=== PATIENT | male | born 1955 | race Caucasian/White ===

== ENCOUNTER → 2017-02-26 | Outpatient (CLI) | payer OTHER ==
[~2017-02-26] MED LIST: ASPEC325 PO; CLB200 PO; MULT-506 PO; OXYSR10 PO; RXC5 PO; TADA10TA PO
[2017-02-26 18:20] LABS: URINE APPEARANCE TURBID (CLEAR); URINE BILIRUBIN NEG (NEG); URINE COLOR YELLOW; URINE EPITHELIAL CELL AUTO 0-5 /lpf (0-5); URINE NITRITE NEG (NEG); URINE SPECIFIC GRAVITY 1.028 (1.000-1.030); UROBILINOGEN NEG (NEG)
[2017-02-26 18:23] LABS: MANUAL MICROSCOPIC REQUIRED? NO; REVIEW REQ? NO
== END | disposition home or self-care (01) ==
LOC: C.LABMFLN 11:27
PROVIDERS: ATTEND Family Medicine
DX: N45.1 Epididymitis (principal)

== ENCOUNTER → 2017-11-20 | Outpatient (CLI) | payer OTHER | END | disposition home or self-care (01) | LOC: C.LABMFLN 08:08 | PROVIDERS: ATTEND Family Medicine | DX: R31.29 Other microscopic hematuria (principal) ==

== ENCOUNTER 2022-11-07 04:59 | Observation (INO) ==
--- NOTE | 2022-10-18 09:23 | PAT Medication Instructions ---
Medication Instructions Date of Service October 18, 2022 Home Medications Medication Instructions Recorded multivitamin (Multiple Vitamins 1 tab PO DAILY #90 tabs 07/22/19 tablet) sildenafil 100 mg tablet 100 mg PO DAILY PRN sexual 09/13/20 activity #30 tabs finasteride 5 mg tablet 5 mg PO DAILY #90 tabs 10/06/21 meloxicam 15 mg tablet 15 mg PO DAILY PRN pain #90 tabs 10/06/21 hydrocortisone 2.5 % topical cream 1 applic topical BID PRN 12/28/21 hemorrhoidal irritation #30 grams multivitamin (Multiple Vitamins tablet) 1 tab PO DAILY sildenafil 100 mg tablet 100 mg PO DAILY PRN sexual activity finasteride 5 mg tablet 5 mg PO DAILY meloxicam 15 mg tablet 15 mg PO DAILY PRN pain hydrocortisone 2.5 % topical cream 1 applic topical BID PRN hemorrhoidal irritation acetaminophen 325 mg tablet 325 mg PO QID PRN Pain ASK your surgeon for instructions meloxicam 15 mg tablet 15 mg PO DAILY PRN pain STOP taking 24 hours before surgery hydrocortisone 2.5 % topical cream 1 applic topical BID PRN hemorrhoidal irritation DO NOT take the morning of surgery multivitamin (Multiple Vitamins tablet) 1 tab PO DAILY sildenafil 100 mg tablet 100 mg PO DAILY PRN sexual activity Take morning of surgery With a small sip of water, OTHERWISE NOTHING TO EAT OR DRINK AFTER MIDNIGHT: finasteride 5 mg tablet 5 mg PO DAILY acetaminophen 325 mg tablet 325 mg PO QID PRN Pain (if needed) Take evening before surgery sildenafil 100 mg tablet 100 mg PO DAILY PRN sexual activity (if needed) acetaminophen 325 mg tablet 325 mg PO QID PRN Pain (if needed) Other Notes If you have any questions please call us at [phone] or [phone] or [phone] or [phone]
--- NOTE | 2022-10-19 13:56 | Anesthesiology Consultation ---
Date of Service October 19, 2022 Assessment & Plan (1) Encounter for perioperative consultation: - COVID screening: Per assessment on 10/18: No known COVID-19 positive contacts or current COVID-19 related symptoms. Travel screen negative. Patient vaccinated. At surgeon discretion if preop Covid testing being done. - Outpatient joint assessment: Pt currently scheduled for inpatient pathway. If surgeon requests review for outpatient joint pathway, patient is acceptable candidate for outpatient joint program from anesthesia standpoint pending surgeon's office assessment of pt motivation/strong home support/completion of same day joint program preop requirements. - PCP office visit (10/11/22): "For right total knee replacement by Dr. Walter scheduled for November 07, 2022 patient is at low risk of perioperative cardiopulmonary complication based on [place] [employer]/[place] [employer] of cardiology guidelines with precautions mentioned below. Deep vein thrombosis prophylaxis as per Dr. Walter." Chart Review Chart Review: Acceptable Risk for Surgery and Patient seen in Pre Admission Testing Teaching & Discussion Pre-Anesthesia Teaching/Discussion Notes: Instructed NPO after midnight before surgery,except medications with 15 cc of water. Medication instructions provided according to the PAT guidelines. History Surgery Operation Date: 11/07/22 09:55 Proposed Procedures p Right Total Knee Arthroplasty - Rosales Walter MD Height/Weight Height: 6 ft 2 in Weight: 110.4 kg Allergies Allergy/AdvReac Type Severity Reaction Status Date / Time No Known Allergies Allergy Verified 10/11/22 06:57 Medications Home Medications Medication Instructions Recorded Confirmed Last Taken multivitamin (Multiple Vitamins 1 tab PO DAILY #90 tabs 07/22/19 10/18/22 Unknown tablet) sildenafil 100 mg tablet 100 mg PO DAILY PRN sexual 09/13/20 10/18/22 Unknown activity #30 tabs finasteride 5 mg tablet 5 mg PO DAILY #90 tabs 10/06/21 10/18/22 Unknown meloxicam 15 mg tablet 15 mg PO DAILY PRN pain #90 tabs 10/06/21 10/18/22 Unknown hydrocortisone 2.5 % topical cream 1 applic topical BID PRN 12/28/21 10/18/22 Unknown hemorrhoidal irritation #30 grams acetaminophen 325 mg tablet 325 mg PO QID PRN Pain 10/18/22 10/18/22 Unknown Past Medical History Medical History BPH (benign prostatic hyperplasia) DJD (degenerative joint disease) of knee History of COVID-19 11/2020, mild flu-like symptoms > resolved Hyperlipidemia Osteoarthritis of knee Pre-hypertension Prediabetes Per records, pt unaware Hgba1c 5.7% 10/12/22 Exercise / Class Metabolic Activity II 4-5 Yardwork/Stairs/Walk up hill (one FS (no CP, no SOB)) Past Family History Family History Father Coronary heart disease Other No family history of adverse response to anesthesia Past Surgical History Surgical History H/O total knee replacement Left History of appendectomy Hx of colonoscopy Hx of rotator cuff surgery S/P left knee arthroscopy S/P right knee arthroscopy S/P tonsillectomy Past Anesthesia History No Family Hx of Anesthesia Complications and Other (post-op urinary retention) History of PONV No Hx of PONV and No Hx of Motion Sickness Social History Smoking Status: Never smoker Do You Dip or Chew Tobacco: No Hx Alcohol Use: Yes alcohol intake frequency: a few times a week Hx Substance Use: No substance use type: does not use Review of Systems Patient denies chest pain, shortness of breath, dyspnea on exertion, fever, chills, cough, wheezing, palpitations. Physical Exam Vital Signs VITALS BP 137/85 P 52 TEMP 98.2 SP02 97%RA RESP 16 PHYSICAL Full cervical extension range of motion. Full TMJ range of motion. TMD 3 finger breaths Mallampati Score 3 Dentition: intact Lungs: clear throughout to auscultation Cardiac: regular rate and rhythm, no murmurs noted Spine: normal Carotid arteries: negative bruit Extremities: no edema Lab Results Anesthesia Preop Results Results Anesthesia Widget: WBC 6.03 K/ul (4.8-10.8) 10/12/22 Hgb 16.0 g/dl (14.0-18.0) 10/12/22 Hct 46.9 % (40.1-51.0) 10/12/22 Plt 178 K/uL (130-400) 10/12/22 Na 141 mmol/L (136-145) 10/12/22 K 4.1 mmol/L (3.5-5.1) 10/12/22 Cl 106 mmol/L (98-107) 10/12/22 CO2 29 mmol/L (21-32) 10/12/22 BUN 25 mg/dl (6-23) H 10/12/22 Creat 0.94 mg/dl (0.6-1.4) 10/12/22 Glucose Level 102 mg/dl (70-99(Fasting)) H 10/12/22 PT 10.1 Seconds (9.0-12.0) 10/12/22 PTT 26.4 Seconds (21.0-31.0) 10/12/22 INR 0.9 (0.9-1.1) 10/12/22 HA1c 5.7 % (4.5-5.6) H 10/12/22 Urine Color Yellow 10/19/22 Urine Appearance Clear (Clear) 10/19/22 Urine pH 5.0 (4.5-7.5) 10/19/22 Urine Specific [place] 1.019 (1.000-1.030) 10/19/22 Urine Protein Negative (Negative) 10/19/22 Urine Glucose (UA) Negative (Negative) 10/19/22 Urine Ketones Negative (Negative) 10/19/22 Urine Blood Negative (Negative) 10/19/22 Urine Nitrite Negative (Negative) 10/19/22 Urine Bilirubin Negative (Negative) 10/19/22 Urine Urobilinogen Negative (Negative) 10/19/22 Urine Leukocyte Esterase Negative (Negative) 10/19/22 Blood Type B Positive 10/19/22 Antibody Screen NEGATIVE 10/19/22 Testing Electrocardiogram Date: 10/11/22 SR at 60bpm. Normal ECG. No change from 12/22/20 per confirming provider. Chest X-Ray Date: 10/19/22 No acute cardiopulmonary findings. Mild cardiomegaly. Stress Test Date: 11/14/18 Type: exercise The maximal treadmill ECG stress test is negative for ischemia. No chest pain occurred with this test. 92% MPHR. COVID-19 Risk Screen Screening Information COVID-19 Screen Date: 10/19/22 Exposure 21 Days Family/Household +COVID Last 21 Days: No Exposure 10 Days Any COVID Exposure Last 10 Days: No Symptoms Last 10 Days Experienced COVID Sx Last 10 Days: No + COVID 0-90 Days COVID + in Last 0-90 Days: No
--- NOTE | 2022-11-06 15:51 | History & Physical Report ---
Date of Service November 06, 2022 Assessment & Plan (1) Primary osteoarthritis of right knee: Plan: Treatment options discussed with the patient. He has failed conservative measures and would like to proceed with surgical invention. Risks, benefits and alternatives to surgery including but not limited to infection, DVT, pain, stiffness, need for revision surgery, damage to blood vessels, damage to nerves, PE, , were discussed with the patient and they wish to proceed. Plan will be for right total knee arthroplasty scheduled for November 07 at [facility] with Dr. Walter. Plan on outpatient physical therapy postop. Plan on aspirin 81 mg twice daily for 1 month postop for DVT prophylaxis. All questions answered. Patient will follow up postop. History of Present Illness Chief Complaint: Right knee pain Primary Care Provider: Emre Landeros MD 67 year-old male with past medical history significant for hyperlipidemia, BPH, prediabetes who presents with ongoing right knee pain. He has failed conservative measures. Pain is interfering with his daily activities. He would like proceed with surgical intervention. Patient denies headaches, sweats, fevers, chills, double vision, blurred vision, cough, sore throat, dysphagia, chest pain, sob, wheezing, n/v/d/c, numbness, tingling, fatigue, urinary symptoms, mood disorders. ROS positive for right knee pain and stiffness. Allergies Allergy/AdvReac Type Severity Reaction Status Date / Time No Known Allergies Allergy Verified 11/07/22 05:40 Home Medications Medication Instructions Recorded Confirmed Type multivitamin (Multiple Vitamins 1 tab PO DAILY #90 tabs 07/22/19 11/07/22 Rx tablet) sildenafil 100 mg tablet 100 mg PO DAILY PRN sexual 09/13/20 11/07/22 Rx activity #30 tabs meloxicam 15 mg tablet 15 mg PO DAILY PRN pain #90 tabs 10/06/21 11/07/22 Rx hydrocortisone 2.5 % topical cream 1 applic topical BID PRN 12/28/21 11/07/22 Rx hemorrhoidal irritation #30 grams acetaminophen 325 mg tablet 325 mg PO QID PRN Pain 10/18/22 11/07/22 History finasteride 5 mg tablet 5 mg PO DAILY #90 tabs 10/31/22 11/07/22 Rx Past Med/Surg History Medical History BPH (benign prostatic hyperplasia) DJD (degenerative joint disease) of knee History of COVID-19 11/2020, mild flu-like symptoms > resolved Hyperlipidemia Osteoarthritis of knee Pre-hypertension Prediabetes Per records, pt unaware Hgba1c 5.7% 10/12/22 Surgical History H/O total knee replacement Left History of appendectomy Hx of colonoscopy Hx of rotator cuff surgery S/P left knee arthroscopy S/P right knee arthroscopy S/P tonsillectomy Family History Father Coronary heart disease Other No family history of adverse response to anesthesia Social History Smoking Status: Never smoker Second Hand Exposure: No; Do You Dip or Chew Tobacco: No; Tobacco Cessation Education Requested by Patient: No Hx Alcohol Use: Yes Hx Substance Use: No Preferred Language: Uz[place] [employer] Operator Helper Required: No Beliefs That Will Affect Care: None marital status: Current Living Situation: Spouse current occupational status: employed Other Information That Helps Us Care for You: No Feels Safe at Home: Yes Safety Concerns: Feels Safe At This Time Assistive Devices: Glasses Review of Systems All systems reviewed & are unremarkable except as noted in HPI & below Physical Exam Constitutional: well developed and well nourished; no acute distress Eyes: PERRL, conjunctivae normal, anicteric sclerae ENMT: external ear and nose normal, oropharynx normal Neck: trachea midline, no thyromegaly Respiratory: normal respiratory effort, lungs clear to auscultation Cardiovascular: RRR, no murmur, no edema Musculoskeletal: Right knee: Varus alignment. Mild effusion. Prepatellar and medial joint line tenderness. Moderate crepitation with range of motion. Positive Ant's. Stable valgus and varus stress test. Range of motion 15 to 130 degrees. Skin: no rashes, warm and dry Neurologic: patellar DTR's 2+ bilat, sensation intact Psychiatric: A+Ox3, euthymic affect Results & Data ([facility]) Diagnostic Findings Right knee radiographs: Advanced osteoarthritis right knee. [id number] patellofemoral joint, significant joint space narrowing near [id number] medial compartment with subluxation of femur medial on the tibia. There is subchondral sclerosis and periarticular osteophyte formation all 3 compartments.
[2022-11-07] MEDS ORDERED: TRANEXAMIC ACID 1,000 MG **IV Intra-op IV SCH (06:00)
[2022-11-07] MEDS ORDERED: FAMOTIDINE 20 MG TAB PO SCH (06:00)
[2022-11-07] MEDS ORDERED: ROPIVACAINE 0.5% HCL/PF 150 MG, BUPIVACAINE 0.75% MPF 20 ML, EPINEPHrine 30MG/30ML (OR ... INSTIL SCH (06:00)
[2022-11-07] MEDS ORDERED: GABAPENTIN 300 MG CAP PO SCH (06:00)
[2022-11-07] MEDS ORDERED: METOCLOPRAMIDE HCL 10 MG TABLET PO SCH (06:00)
[2022-11-07] MEDS ORDERED: ceFAZolin 2000MG 2,000 MG/15 ML SYR IV SCH (06:00)
[2022-11-07] MEDS ORDERED: LR 500ML BOLUS, THEN 15ML/HR IV SCH (06:00)
[2022-11-07] MEDS ORDERED: ACETAMINOPHEN 500 MG TAB PO SCH (06:00)
[2022-11-07] MEDS ORDERED: dexAMETHasone 4 MG TAB PO SCH (06:00)
[2022-11-07] MEDS ORDERED: CeleBREX 200 MG CAP PO SCH (06:00)
[2022-11-07] MEDS ORDERED: TRANEXAMIC ACID 1,000 MG **IV Pre-op IV SCH (06:00)
[2022-11-07] MEDS ORDERED: BUPIVACAINE 0.5 % 5 MG/1 ML PF 10ML VIAL ONE (06:31)
[2022-11-07] MEDS ORDERED: ROPIVACAINE 0.5% 5 MG/ML 30 ML VIAL ONE (06:31)
[2022-11-07] MEDS ORDERED: PROPOFOL IV EMULSION 10 MG/ML 20 ML VIAL IV ONE ×5 (06:45→09:54)
[2022-11-07] MEDS ORDERED: MIDAZOLAM HCL 1 MG/ML 2ML VIAL ONE ×2 (06:45→07:38)
[2022-11-07] MEDS ORDERED: ONDANSETRON INJ 2 MG/ML 2 ML VIAL ONE (06:45)
[2022-11-07] MEDS ORDERED: LIDOCAINE 2% MPF LOCAL 5 ML VIAL INFIL ONE (06:45)
--- NOTE | 2022-11-07 07:11 | History & Physical Bridge Note ---
Date of Service November 07, 2022 History & Physical Bridge Note I have examined the patient, reviewed the History & Physical and in the interval since the performance of the History & Physical I have noted the following changes of clinical significance: no changes noted
[2022-11-07] MEDS ORDERED: ORTHO JOINT ANESTHETIC ONE (07:25)
[2022-11-07] MEDS ORDERED: KETAMINE 50 MG/5 ML SYRINGE ONE (07:59)
[2022-11-07] MEDS ORDERED: HYDROmorphone INJ 2 MG/ML SYR/VIAL IV PRN (08:53)
[2022-11-07] MEDS ORDERED: ATROPINE SULFATE 0.1 MG/ML 10ML SYR IV PRN (08:53)
[2022-11-07] MEDS ORDERED: ePHEDrine sulfate 50 MG/ML AMP IV PRN (08:53)
[2022-11-07] MEDS ORDERED: fentaNYL citrate 100 MCG/2 ML VIAL IV PRN (08:53)
--- NOTE | 2022-11-07 10:25 | Post Operative Brief Note ---
Immediate Post Op Note v1 Date of Surgery November 07, 2022 Pre & Post Diagnosis Operation Date: 11/07/22 07:15 Pre-Op Diagnosis: Right Knee Osteoarthritis, loose body versus heterotopic bone Post-Op Diagnosis: Right Knee Osteoarthritis Heterotopic bone, chronic partial quadriceps tendon tear, large loose body I identified the patient and participated in the time-out.: Yes Procedure Operation Date: 11/07/22 07:15 Actual Procedures p Right Total Knee Arthroplasty, repair quadriceps tendon tear excision loose body and heterotopic bone quadriceps tendon (Right) - Rosales Walter MD Surgeon Rosales Walter MD Electrical Instrumentation Technician Sergio HOOKS Estimated Blood Loss 15 Findings Consistent with Post-Op Diagnosis Specimens Bone cuts Drains Hemovac Drain (dual lumen) Complications none Disposition Disposition: Recovery Room Overlapping Procedure I was immediately available: during the entire case.
--- NOTE | 2022-11-07 10:56 | Anesthesiology Progress Note ---
Date of Service November 07, 2022 Anesthesia Post Procedure Vital Signs Vital Signs: Temp Pulse Pulse Resp BP Pulse Ox O2 Del Method 11/07/22 10:45 55 L 13 120/81 97 Room Air 11/07/22 10:35 60 14 124/80 99 Room Air 11/07/22 10:26 36.6 C 65 16 113/84 99 Room Air 11/07/22 05:26 36.9 C 52 L 20 149/96 H 98 Room Air Transfer of Care Handoff Completed per policy Notes Mental Status: alert / awake / arousable and participated in evaluation Patient Amnestic to Procedure: Yes Nausea / Vomiting: adequately controlled Pain: adequately controlled Airway Patency, RR, SpO2: stable & adequate BP & HR: stable & adequate Hydration State: stable & adequate Neuraxial Anesthesia: was administered and sensory block is resolving Anesthetic Complications: no major complications apparent and Pt Satisfied with anesthetic care
--- NOTE | 2022-11-07 11:02 | Operative Report ---
Post Operative Report Pre & Post Diagnosis Operation Date: 11/07/22 07:15 Pre-Op Diagnosis: Right Knee Osteoarthritis, loose body versus heterotopic bone suprapatellar region Post-Op Diagnosis: Right Knee Osteoarthritis, large loose body suprapatellar pouch, heterotopic bone quadriceps tendon with chronic partial tear quadriceps tendon at patella attachment site. I identified the patient and participated in the time-out.: Yes Procedure Operation Date: 11/07/22 07:15 Actual Procedures p Right Total Knee Arthroplasty, repair quadriceps tendon tear(Right), excision heterotopic bone quadriceps tendon and excision large loose body knee joint. Herman and Acticoat superficial wound VAC placement.- Rosales Walter MD Surgeon Rosales Walter MD Terminal Clerk Sergio HOOKS Estimated Blood Loss 15 Findings Consistent with Post-Op Diagnosis Specimens Bone cuts Drains 2 Hemovac Anesthesia Type General Regional Complications none Disposition Disposition: Recovery Room Indications 67-year-old male with chronic right knee pain failed conservative management. Radiographs demonstrate grade 3 osteoarthritis mid compartment with varus knee subluxation of femur medial on the tibia with grade 4 patellofemoral osteoarthritis and a calcification of the quadriceps tendon and a large loose body versus calcification that could be heterotopic bone in the suprapatellar pouch region. Description of Procedure The patient was taken to the operating room and anesthetized under spinal MAC regional block. Patient was placed supine on the the operating table. A pneumatic tourniquet was placed about the right upper thigh. The knee exam demonstrated 10 degree flexion contracture with good flexion to at least 130 degrees and no instability. The involved leg was elevated exsanguinated with Esmarch bandage and the pneumatic tourniquet was raised to 325 millimeters mercury. A longitudinal incision was made across the anterior knee. Skin flaps were elevated. An incision was made into the medial retinaculum and extended up into the mid third of the quadriceps tendon and extended down to the tibial tubercle. Intra-articular findings demonstrated a large irregular loose body about 2-1/2 cm x 15 mm in the suprapatellar pouch region. There is also calcification in the VMO region with a area of ectopic bone which was about 18 x 10 mm. There was a defect between the anterior and posterior quad tendon at the attachment to the patella with the anterior part of the tendon being attached in the posterior thin area still being attached with a defect between the 2 layers of the quadriceps that were torn away from the medial side of the patella and adjacent to those areas were more areas of heterotopic bone within the quadrice ps tendon possibly avulsed from the superior patella. This all looked very chronic. There was a chronic posterior medial meniscus tear and grade 3 osteoarthritis medial compartment and grade 4 osteoarthritis patellofemoral joint with a large lateral patellar osteophyte and some flattening of the patella in general. There was a thin ACL but still intact in the posterior crucial ligament was intact. The lateral compartment was normal. There were tricompartmental osteophytes.. The knee was exposed by excising cruciate ligaments and menisci. The infrapatellar fat pad was resected. The fat pad over the anterior femur at the upper aspect of the articular surface was resected for placement of the component in that area. A subperiosteal peel lateral release was performed around the patella. Large loose body was excised. The areas of heterotopic bone in the VMO area and the quadriceps tendon were carefully dissected out preserving the intact quadriceps tendon tissue. This was performed with a 15 blade sharp dissection. Rongeur was also used. The Dahl & Nephew journey 2.0 posterior stabilized total knee arthroplasty system was utilized for the procedure. The custom femoral cutting guide was pinned in position. The distal femoral cut was made. The size 8, 5 in 1 cutting block was placed. The anterior posterior and chamfer cuts were made. The knee was extended and a free hand cut technique was performed to the patella. The patella with was measured and the width was reproduced using a 38 symmetrical patella component. 3 drill holes are made for the patella component pegs. The tibia was then subluxed. The custom tibial cutting block was pinned in position and the proximal tibial cut was made with the oscillating saw. Flexion extension gaps were balanced requiring some medial and posterior medial releases. The size 7 tibial trial was externally rotated in line with the tibial tubercle and pinned in position. the punch for the stem was used. The femoral trial was inserted and centered the notch cutting devices were used and the collet was placed. Tibial trials were used for the insert. The size 12 trial gave balanced ligaments through full range of motion. Patella tracking was assessed with range of motion. The patella tracked centrally. The trials were removed. The Orthomix anesthetic cocktail was injected per protocol. The cut bone surfaces and soft tissue were copiously irrigated with pulsatile lavage saline solution. The final components were cemented with Simplex cement. The final components were a right posterior stabilized Dahl [employer] Nephew journey 2.0 femoral component, 7 right tibial component, 12 mm right posterior stabilized polyethylene insert and 38 symmetrical patella. After the cement cured, the Betadine soak was used for 3 minutes. The knee was then copiously irrigated with pulsatile lavage saline solution. 2 drains were brought out laterally connected to Hemovac. The medial patella bone area where the chronic tear was was debrided exposing the bone for healing purposes only in the area where the tendon was torn away. Tendon was roughened up between the anterior and posterior defect in the quadriceps tendon. A #1 Vicryl suture was used to repair the anterior to the posterior quadriceps tendon being that defect together. A Q fix 2.8 mm suture anchor was placed into the superior medial corner of the patella. There was excellent fixation there. The sutures were passed through the VMO portion of the quad tendon and through the area of the quad tendon adjacent to the defect laterally. The sutures were tied down with a surgeon's knot reapproximating the VMO to the patella and repairing the defect. Further repair of the the quadriceps tendon and medial retinaculum was completed with interrupted [id number] #1 Vicryl sutures. The knee was taken through full range of motion and repair was secure. Knee range of motion was 0 through 130 degrees. the subcutaneous tissues were closed with 2-0 Vicryl sutures. The skin was closed with neeta. A herman and Acticoat superficial wound VAC was applied. The tourniquet was let down and the patient had good capillary refill to the extremity. The patient tolerated the procedure well. My physician zoning assistant Sergio HOOKS participated as emergency room physician assistant and was integral part in all aspects of the procedure including prepping, draping, leg positioning, soft tissue retraction, instrument management and assisted in the closure, application of the wound VAC and will participate in postoperative care the patient. I attest to the content of the Intraoperative Record and any orders documented therein. Any exceptions are noted below.
--- NOTE | 2022-11-07 11:16 | Anesthesiology Progress Note ---
Date of Service November 07, 2022 Anesthesia Post Procedure Vital Signs Vital Signs: Temp Pulse Pulse Resp BP Pulse Ox O2 Del Method 11/07/22 11:05 54 L 17 135/88 100 Room Air 11/07/22 10:55 56 L 16 130/85 97 Room Air 11/07/22 10:45 55 L 13 120/81 97 Room Air 11/07/22 10:35 60 14 124/80 99 Room Air 11/07/22 10:26 36.6 C 65 16 113/84 99 Room Air 11/07/22 05:26 36.9 C 52 L 20 149/96 H 98 Room Air Transfer of Care Handoff Completed per policy Notes Mental Status: alert / awake / arousable and participated in evaluation Patient Amnestic to Procedure: Yes Nausea / Vomiting: adequately controlled Pain: adequately controlled Airway Patency, RR, SpO2: stable & adequate BP & HR: stable & adequate Hydration State: stable & adequate Neuraxial Anesthesia: was administered and sensory block is resolving Anesthetic Complications: no major complications apparent and Pt Satisfied with anesthetic care
--- NOTE | 2022-11-07 11:38 | XRay Report ---
RIGHT KNEE 2 VIEWS History: Right total knee arthroplasty. Degenerative arthritis. Postop. FINDINGS: The patient is status post a right total knee arthroplasty. The hardware is intact. No frac ture or dislocation. Skin neeta and surgical drains are in place. IMPRESSION: Right total knee arthroplasty. No evidence for hardware complication. ACT 112: Negative or not required by law. Electronically signed by: Jairon Lyon M.D. 11/07/2022 11:36 AM
[2022-11-07] MEDS ORDERED: NALOXONE HCL 0.4 MG/1 ML VIAL/CARP IV PRN (12:32)
[2022-11-07] MEDS ORDERED: HYDROmorphone INJ 0.5 MG/0.5 ML SYR IV PRN (12:32)
[2022-11-07] MEDS ORDERED: NON-FORMULARY MEDICATION (Sildenafil 100 mg tablet) PO PRN (12:32)
[2022-11-07] MEDS ORDERED: METOCLOPRAMIDE HCL INJ 5 MG/ML 2 ML VIAL IV PRN (12:32)
[2022-11-07] MEDS ORDERED: bisacodyL 10 MG SUPP PR PRN (12:32)
[2022-11-07] MEDS ORDERED: MAGNESIUM HYDROXIDE SUSP 30 ML UDC PO PRN (12:32)
[2022-11-07] MEDS ORDERED: ONDANSETRON INJ 2 MG/ML 2 ML VIAL IV PRN (12:32)
[2022-11-07] MEDS: SODIUM CHLORIDE 0.9% 1000ML 1,000 ML IV SCH ×2 (12:58→22:26)
--- NOTE | 2022-11-07 13:01 | History & Physical Report ---
Date of Service November 07, 2022 Assessment & Plan Admission and Anticipated Discharge Date Admission Date: November 07, 2022 History of Present Illness Primary Care Provider: Emre Landeros MD Lino Duckworth is a 67-year-old male with a past medical history of osteoarthritis, pre-hypertension, hyperlipidemia, prediabetes, and BPH who presented for scheduled Right Total Knee Arthroplasty, repair quadriceps tendon tear(Right), excision heterotopic bone quadriceps tendon and excision large loose body knee joint. Rashida and Acticoat superficial wound VAC placement performed 11/07/[address] Walter. S/p right TKA DVT prophylaxis, pain control, ambulation recommendations per primary team Preop EKG with normal EKG, no CAD/anginal symptoms or equivalents preoperatively. NSAIDs were held week prior to surgery. Pre-hypertension Normotensive postoperatively. No home antihypertensives. Prediabetes mellitus Preop A1c 5.7% Glucose 102 No home antilipemics Defer pharmacotherapy at this time, follow clinically. Goal BSG [id number] BMP daily BPH Continue finasteride DVT prophylaxis: Per primary team. CODE STATUS: Full code Diet: Regular Disposition: Medical/surgical Patient is without chest pain, shortness of breath, hypoxia, or hemodynamic abnormalities at time of assessment or preoperatively. He is normotensive, and does well without home antihypertensives. Mildly elevated fasting BSG with well-controlled A1c without pharmacotherapy. History of BPH, may resume finasteride as noted. Medicine will sign off, please consult with us with any concerns or if lab abnormalities/hemodynamic abnormalities develop. Allergies Allergy/AdvReac Type Severity Reaction Status Date / Time No Known Allergies Allergy Verified 11/07/22 05:40 Home Medications Medication Instructions Recorded Confirmed Type multivitamin (Multiple Vitamins 1 tab PO DAILY #90 tabs 07/22/19 11/07/22 Rx tablet) sildenafil 100 mg tablet 100 mg PO DAILY PRN sexual 09/13/20 11/07/22 Rx activity #30 tabs meloxicam 15 mg tablet 15 mg PO DAILY PRN pain #90 tabs 10/06/21 11/07/22 Rx hydrocortisone 2.5 % topical cream 1 applic topical BID PRN 12/28/21 11/07/22 Rx hemorrhoidal irritation #30 grams acetaminophen 325 mg tablet 325 mg PO QID PRN Pain 10/18/22 11/07/22 History finasteride 5 mg tablet 5 mg PO DAILY #90 tabs 10/31/22 11/07/22 Rx Past Med/Surg History Medical History BPH (benign prostatic hyperplasia) DJD (degenerative joint disease) of knee History of COVID-19 11/2020, mild flu-like symptoms > resolved Hyperlipidemia Osteoarthritis of knee Pre-hypertension Prediabetes Per records, pt unaware Hgba1c 5.7% 10/12/22 Surgical History H/O total knee replacement Left History of appendectomy Hx of colonoscopy Hx of rotator cuff surgery S/P left knee arthroscopy S/P right knee arthroscopy S/P tonsillectomy Family History Father Coronary heart disease Other No family history of adverse response to anesthesia Social History Smoking Status: Never smoker Second Hand Exposure: No; Do You Dip or Chew Tobacco: No; Tobacco Cessation Education Requested by Patient: No Hx Alcohol Use: Yes Hx Substance Use: No Preferred Language: Tristanian Leather Repairer Required: No Beliefs That Will Affect Care: None marital status: Current Living Situation: Spouse current occupational status: employed Other Information That Helps Us Care for You: No Feels Safe at Home: Yes Safety Concerns: Feels Safe At This Time Assistive Devices: Glasses Results & Data Results & Data ([facility]) Vital Signs (Past 12 Hours) Vital Signs Temp Pulse Pulse Resp BP Pulse Ox O2 Del Method 11/07/22 12:50 55 L 16 135/88 95 Room Air 11/07/22 12:25 36.5 C 60 16 125/73 94 Room Air 11/07/22 11:55 36.2 C L 62 15 129/71 97 Room Air 11/07/22 11:25 56 L 13 128/75 95 Room Air 11/07/22 11:15 36.7 C 58 L 14 132/83 99 Room Air 11/07/22 11:05 54 L 17 135/88 100 Room Air 11/07/22 10:55 56 L 16 130/85 97 Room Air 11/07/22 10:45 55 L 13 120/81 97 Room Air 11/07/22 10:35 60 14 124/80 99 Room Air 11/07/22 10:26 36.6 C 65 16 113/84 99 Room Air 11/07/22 05:26 36.9 C 52 L 20 149/96 H 98 Room Air Code Status & VTE Plan VTE Prophylaxis Plan VTE Prophylaxis will be ordered: Yes PG Care Time/CCT Total # of Minutes Spent Total Time Spent with Patient: Total time spent is greater than 50% in coordination of care (as documented) at patient's floor/unit and/or counseling patient: Coding
--- NOTE | 2022-11-07 13:36 | Hospitalist Consultation ---
Date of Consultation November 07, 2022 Assessment & Plan (1) Primary osteoarthritis of right knee: Lino Duckworth is a 67-year-old male with a past medical history of osteoarthritis, pre-hypertension, hyperlipidemia, prediabetes, and BPH who presented for scheduled Right Total Knee Arthroplasty, repair quadriceps tendon tear(Right), excision heterotopic bone quadriceps tendon and excision large loose body knee joint. Rashida and Acticoat superficial wound VAC placement performed 11/07/[address] Walter. S/p right TKA, superficial VAC placement DVT prophylaxis, wound, pain control, ambulation recommendations per primary team. No comorbidity to recommend a specific antiplatelet/anticoagulant for DVT prophylaxis. No history of blood clots Preop EKG with normal EKG, no CAD/anginal symptoms or equivalents preoperatively. NSAIDs were held week prior to surgery. Pre-hypertension Normotensive postoperatively. No home antihypertensives. Prediabetes mellitus Preop A1c 5.7% Glucose 102 No home antilipemics Defer pharmacotherapy at this time, follow clinically. Goal BSG [id number] BMP daily BPH Continue finasteride HLD Outpatient follow-up DVT prophylaxis: Per primary team. CODE STATUS: Full code Diet: Regular Disposition: Medical/surgical Patient is without chest pain, shortness of breath, hypoxia, or hemodynamic abnormalities at time of assessment or preoperatively. He is normotensive, and does well without home antihypertensives. Mildly elevated fasting BSG with wel l-controlled A1c without pharmacotherapy. History of BPH, may resume finasteride as noted. Medicine will sign off, please consult with us with any concerns or if lab abnormalities/hemodynamic abnormalities develop. (2) Hyperlipidemia: (3) Rectal bleeding: (4) BPH (benign prostatic hyperplasia): (5) Hyperlipidemia: (6) Prediabetes: History of Present Illness Attending Physician: Rosales Walter MD History of Present Illness Lino Duckworth is a 67-year-old male with a past medical history of osteoarthritis, pre-hypertension, hyperlipidemia, prediabetes, and BPH who presented for scheduled Right Total Knee Arthroplasty, repair quadriceps tendon tear(Right), excision heterotopic bone quadriceps tendon and excision large loose body knee joint. Rashida and Acticoat superficial wound VAC placement performed 11/07/[address] Walter. Lino is seen postoperatively at the bedside. No chest pain, chest pressure, shortness of breath, difficulty breathing, fever, chills lightheadedness, dizziness. Reports feeling his come back into his feet, sensation is intact to soft touch bilaterally without asymmetry. Ankle dorsiflexion/plantarflexion is intact and he is able to wiggle his toes. Denies pain in the right leg. Reports he has not taken any anti-inflammatories or aspirin in a week, including his meloxicam. Does take finasteride daily. No medication allergies. No history of angina/anginal equivalents or shortness of breath. No history of antidiabetic medications, has a slightly elevated fasting glucose with well- controlled A1c. He is curious about activity recommendations, discussed that these will come from the surgical team. No other questions Medical History: Reviewed Medications: Reviewed Surgical History: Reviewed Allergies: Reviewed Social History: Reviewed Code Status: Full Allergies Allergy/AdvReac Type Severity Reaction Status Date / Time No Known Allergies Allergy Verified 11/07/22 05:40 Home Medications Medication Instructions Recorded Confirmed Type multivitamin (Multiple Vitamins 1 tab PO DAILY #90 tabs 07/22/19 11/07/22 Rx tablet) sildenafil 100 mg tablet 100 mg PO DAILY PRN sexual 09/13/20 11/07/22 Rx activity #30 tabs meloxicam 15 mg tablet 15 mg PO DAILY PRN pain #90 tabs 10/06/21 11/07/22 Rx hydrocortisone 2.5 % topical cream 1 applic topical BID PRN 12/28/21 11/07/22 Rx hemorrhoidal irritation #30 grams acetaminophen 325 mg tablet 325 mg PO QID PRN Pain 10/18/22 11/07/22 History finasteride 5 mg tablet 5 mg PO DAILY #90 tabs 10/31/22 11/07/22 Rx Patient History Medical History BPH (benign prostatic hyperplasia) DJD (degenerative joint disease) of knee History of COVID-19 11/2020, mild flu-like symptoms > resolved Hyperlipidemia Osteoarthritis of knee Pre-hypertension Prediabetes Per records, pt unaware Hgba1c 5.7% 10/12/22 Surgical History H/O total knee replacement Left History of appendectomy Hx of colonoscopy Hx of rotator cuff surgery S/P left knee arthroscopy S/P right knee arthroscopy S/P tonsillectomy Family History Father Coronary heart disease Other No family history of adverse response to anesthesia Social History Smoking Status: Never smoker Second Hand Exposure: No; Do You Dip or Chew Tobacco: No; Tobacco Cessation Education Requested by Patient: No Hx Alcohol Use: Yes Hx Substance Use: No Preferred Language: Romansh Allopathic Doctor Required: No Beliefs That Will Affect Care: None marital status: Current Living Situation: Spouse current occupational status: employed Other Information That Helps Us Care for You: No Feels Safe at Home: Yes Safety Concerns: Feels Safe At This Time Assistive Devices: Glasses Review of Systems Review of Systems: All systems reviewed & are unremarkable except as noted in HPI & below Physical Exam Physical Exam: General: A&Ox3. NAD. Cooperative. HEENT: Atraumatic, normocephalic. Vision/hearing grossly intact Pulm: CTAB A&P. -wheezes, -rales, -rhonchi. Symmetrical chest rise. No increase in work of breathing. No respiratory distress. Cardiac: RRR, -mrg. Radial pulses intact and symmetrical. Abdominal: Nontender, nondistended, soft. BS present. Extremities: Right knee with postop dressing intact, drain in place draining sanguinous material. Sensation soft touch intact in feet bilaterally without asymmetry, ankle dorsiflexion/plantarflexion 5/5 bilaterally. Clammer strength 5/5 bilaterally. Moves upper extremities equally. PT pulse intact bilaterally Results & Data Results & Data ([facility]) Vital Signs (Past 12 Hours) Vital Signs Temp Pulse Pulse Resp BP Pulse Ox O2 Del Method 11/07/22 13:24 60 16 133/86 94 Room Air 11/07/22 12:50 55 L 16 135/88 95 Room Air 11/07/22 12:25 36.5 C 60 16 125/73 94 Room Air 11/07/22 11:55 36.2 C L 62 15 129/71 97 Room Air 11/07/22 11:25 56 L 13 128/75 95 Room Air 11/07/22 11:15 36.7 C 58 L 14 132/83 99 Room Air 11/07/22 11:05 54 L 17 135/88 100 Room Air 11/07/22 10:55 56 L 16 130/85 97 Room Air 11/07/22 10:45 55 L 13 120/81 97 Room Air 11/07/22 10:35 60 14 124/80 99 Room Air 11/07/22 10:26 36.6 C 65 16 113/84 99 Room Air 11/07/22 05:26 36.9 C 52 L 20 149/96 H 98 Room Air PG Care Time/CCT Total # of Minutes Spent Total Time Spent with Patient: Total time spent is greater than 50% in coordination of care (as documented) at patient's floor/unit and/or counseling patient: Coding Level of Care Code 98474 Inpt Consult Level 3 Diagnoses Primary osteoarthritis of right knee M17.11 Hyperlipidemia E78.5 Rectal bleeding K62.5 BPH (benign prostatic hyperplasia) N40.0 Hyperlipidemia E78.5 Prediabetes R73.03
[2022-11-07] MEDS: ACETAMINOPHEN 500 MG TAB PO SCH ×2 (14:23→21:22)
[2022-11-07] MEDS: ceFAZolin 2000MG 2,000 MG/15 ML SYR IV SCH ×2 (16:33→22:46)
[2022-11-07] MEDS: ASPIRIN 81 MG ECTAB PO SCH (20:09)
[2022-11-07] MEDS: DOCUSATE SODIUM 100 MG CAP PO SCH (20:09)
[2022-11-07] MEDS: CeleBREX 200 MG CAP PO SCH (20:09)
[2022-11-07] MEDS ORDERED: SENNA 8.6 MG TAB PO SCH (21:00)
[2022-11-07] MEDS: oxyCODONE HCL IR 5 MG TAB (IMMEDIATE RELEASE) PO PRN (21:22)
[2022-11-07] MEDS ORDERED: MELATONIN 3 MG TAB PO PRN (23:09)
[2022-11-08] MEDS: oxyCODONE HCL IR 5 MG TAB (IMMEDIATE RELEASE) PO PRN ×2 (04:07→08:28)
[2022-11-08] MEDS: ACETAMINOPHEN 500 MG TAB PO SCH (05:45)
--- NOTE | 2022-11-08 07:11 | Orthopedic Progress Note ---
Date of Service November 08, 2022 Assessment & Plan (1) Primary osteoarthritis of right knee: Plan: Postop day #1 right total knee arthroplasty -PT/OT -A.m. labs pending -Pain management as written -DVT prophylaxis: SCDs, teds, aspirin 81 mg twice daily -Discharge planning: Plan on discharge home with plans on outpatient PT. Plan on discharge later today after PT. Admission and Anticipated Discharge Date Admission Date: November 07, 2022 Subjective Patient is postop day 1 right total knee. He is doing well this morning. Has well-controlled pain. Hoping to go home today. No current complaints. Denies chest pain, shortness of breath, headache/dizziness/lightheadedness, nausea/vomiting/diarrhea. Review of Systems Review of Systems: All systems reviewed & are unremarkable except as noted in Subjective Physical Exam Physical Exam: Right knee: Dressing is clean, dry, intact. Hemovac on suction. No calf tenderness. Good dorsiflexion. Able to do a straight leg ra ise. Distally neurovascular status and sensation intact. Results & Data ([facility]) Vital Signs (Past 12 Hours) Vital Signs Temp Pulse Resp BP Pulse Ox O2 Del Method 11/08/22 04:00 36.7 C 64 18 131/70 97 Room Air 11/08/22 00:18 36.9 C 66 18 122/70 95 Room Air 11/07/22 21:10 Room Air 11/07/22 19:56 36.5 C 77 20 142/81 H 95 Room Air
[2022-11-08] MEDS: ASPIRIN 81 MG ECTAB PO SCH (08:01)
[2022-11-08] MEDS: CeleBREX 200 MG CAP PO SCH (08:02)
[2022-11-08] MEDS: DOCUSATE SODIUM 100 MG CAP PO SCH (08:02)
[2022-11-08 08:35] LABS: Hematocrit (blood only) 36.7 % (40.1-51.0); Hemoglobin 12.7 g/dl (14.0-18.0); Mean Corpuscular Hemoglobin 31.8 pg (25.0-34.0); Mean Corpuscular Hgb Conc 34.6 g/dL (32.0-36.0); Mean Corpuscular Volume 91.8 fL (80.0-100.0); Mean Platelet Volume 11.7 fL (9.4-12.4); Platelet Count 161 K/uL (130-400); RDW Coefficient of Variation 12.2 % (11.5-14.5); RDW Standard Deviation 41.1 fL (36.4-46.3); White Blood Count 16.31 K/ul (4.8-10.8)
[2022-11-08] MEDS ORDERED: FINASTERIDE 5 MG TAB PO SCH (09:00)
[2022-11-08] MEDS ORDERED: MULTIVITAMIN TAB PO SCH (09:00)
[2022-11-08 09:04] LABS: BUN Creatinine Ratio 26.7 (10-20); Calcium 8.5 mg/dl (8.5-10.1); Creatinine Clr Calc Pharmacy 111.3 ml/min; Est GFR (African American) 104.7 ml/min; Est GFR (Non-African American) 90.4 ml/min; Potassium 3.9 mmol/L (3.5-5.1)
--- NOTE | 2022-11-12 16:50 | Discharge Summary ---
Date of Service November 12, 2022 Admission HPI Per Admitting Provider 67 year-old male with past medical history significant for hyperlipidemia, BPH, prediabetes who presents with ongoing right knee pain. He has failed conservative measures. Pain is interfering with his daily activities. He would like proceed with surgical intervention. Patient denies headaches, sweats, fevers, chills, double vision, blurred vision, cough, sore throat, dysphagia, chest pain, sob, wheezing, n/v/d/c, numbness, tingling, fatigue, urinary symptoms, mood disorders. ROS positive for right knee pain and stiffness. Admission Exam Per Admitting Provider Constitutional: well developed and well nourished; no acute distress Eyes: PERRL, conjunctivae normal, anicteric sclerae ENMT: external ear and nose normal, oropharynx normal Neck: trachea midline, no thyromegaly Respiratory: normal respiratory effort, lungs clear to auscultation Cardiovascular: RRR, no murmur, no edema Musculoskeletal: Right knee: Varus alignment. Mild effusion. Prepatellar and medial joint line tenderness. Moderate crepitation with range of motion. Positive Ant's. Stable valgus and varus stress test. Range of motion 15 to 130 degrees. Skin: no rashes, warm and dry Neurologic: patellar DTR's 2+ bilat, sensation intact Psychiatric: A+Ox3, euthymic affect Principal Diagnosis Right knee osteoarthritis Discharge Exam Right knee: Dressing is clean, dry, intact. Hemovac on suction. No calf tenderness. Good dorsiflexion. Able to do a straight leg raise. Distally neurovascular status and sensation intact. Constitutional well developed and well nourished; no acute distress Discharge Data Allergies Allergy/AdvReac Type Severity Reaction Status Date / Time No Known Allergies Allergy Verified 11/07/22 05:40 Consultations 11/05/22 13:21 Consult Hospitalist Routine Procedures Performed Operation Date: 11/07/22 07:15 Actual Procedures p Right Total Knee Arthroplasty, repair quadracep tendon tear(Right) - Rosales Walter MD Ordered Studies 11/07/22 05:00 US - OR guided needle placemen Routine Hospital Course (1) Primary osteoarthritis of right knee: Postop day #1 right total knee arthroplasty -PT/OT -A.m. labs pending -Pain management as written -DVT prophylaxis: SCDs, teds, aspirin 81 mg twice daily -Discharge planning: Plan on discharge home with plans on outpatient PT. Plan on discharge later today after PT. Lab Results 11/07/22 11/08/22 11/08/22 Range/Units 05:24 07:59 07:59 WBC 16.31 H (4.8-10.8) K/ul RBC 4.00 L (4.63-6.08) M/uL Hgb 12.7 L (14.0-18.0) g/dl Hct 36.7 L (40.1-51.0) % MCV 91.8 (80.0-100.0) fL MCH 31.8 (25.0-34.0) pg MCHC 34.6 (32.0-36.0) g/dL RDW Std Deviation 41.1 (36.4-46.3) fL RDW Coeff of Stu 12.2 (11.5-14.5) % Plt Count 161 (130-400) K/uL MPV 11.7 (9.4-12.4) fL Sodium 139 (136-145) mmol/L Potassium 3.9 (3.5-5.1) mmol/L Chloride 107 (98-107) mmol/L Carbon Dioxide 28 (21-32) mmol/L Anion Gap 4 (3-11) BUN 23 (6-23) mg/dl Creatinine 0.86 (0.6-1.4) mg/dl Est Cr Clr Drug Dosing 111.3 ml/min Est GFR ( Amer) 104.7 ml/min Est GFR (Non-Af Amer) 90.4 ml/min BUN/Creatinine Ratio 26.7 H (10-20) Glucose 121 H (70-99(Fasting)) mg/dl Calcium 8.5 (8.5-10.1) mg/dl SARS-CoV-2, RNA, NAAT NEGATIVE (NEGATIVE) Total Time Total Time Spent Total Time Spent (In Minutes): 20 Discharge Plan Discharge Items Patient Disposition: Home - Self-Care Reason For Visit: Right Knee Osteoarthritis Discharge Diagnosis: Right knee osteoarthritis Activity: Per Instructions section Non-emergency contact: Surgeon Call non-emergency contact if: you have any medication questions, your pain is not controlled, your pain is concerning for you, you have a fever, your temperature is above 101, your wound has increased redness and your wound has increased drainage Follow-up/Referrals: Emre Landeros MD [Primary Care Provider] - Diet: Regular Addtl Attending Provider Instructions: ACTIVITY RECOMMENDATIONS: SELF CARE INSTRUCTIONS AFTER TOTAL KNEE REPLACEMENT A. You may need to continue a physical therapy program after discharge from the hospital. There are several options available to you. Your doctor will assist you in selecting the best one for you. 1. An out-patient facility 2 to 3 times a week for therapy or home therapy. 2. Continue working on all exercises taught to you in the hospital. Your goals should be to increase bending of your knee to 90 degrees and beyond and to fully straighten your knee. B. You may progress at your own pace from walking with a walker or crutches to a cane; then to no assistive devices. C. Make walking a part of your daily routine. Be up as much as comfortable with rest periods throughout the day. Rest with leg elevation is very important. Use the ice wrap frequently for the first 3-4 weeks. D. There are no restrictions on activities. You may ride in a car, shop, participate in statistical clerk and all social activities. E. Wear the long elastic stockings (OBDULIA hose) 20 hours a day for 2 weeks after surgery. They can be removed several times a day for laundering and for a bath. F. You may shower, no tub baths until cleared by your doctor. SPECIAL CARE INSTRUCTIONS: VERY IMPORTANT TO READ AND REVIEW A. There are a few signs you need to watch for after you are home. Call [facility] if you notice any of the followin. Increased severe knee pain. Some pain is expected especially when you exercise. 2. Increased swelling in your leg or knee; pain or swelling of the calf muscle in either lower leg. 3. Any fluid drainage from the incision. 4. Shortness of breath or chest pain. B. Please call [facility] at if you have any concerns or questions about your operation or recovery. The doctor or his nurse will return your call promptly. C. You must take antibiotics before dental work, bladder, bowel or other surgery. Your doctor will provide you with a permanent care to carry describing this precaution. IMPORTANT: * REMEMBER TO TAKE ASPIRIN, 81 MG, TWICE DAILY FOR 4 WEEKS UNLESS OTHERWISE DIRECTED. THIS IS YOUR BLOOD THINNER. * HIGH RISK PATIENTS MAY BE PRESCRIBED A STRONGER BLOOD THINNER. THIS WILL BE PROVIDED AT DISCHARGE. * CALL IF INCREASED PAIN, REDNESS, DRAINAGE OR FEVER GREATER THAT 101. * WEAR OBDULIA HOSE 20 HOURS PER DAY FOR 2 WEEKS. * This is a large suction dressing covering your incision. This will help pull any excess drainage from the wound and allow your incision to heal properly. You may shower with this if you can keep the unit outside of the shower. If any bleeding or leakage is noted please call your doctor's office. This will remain on your incision for 7 days and then should be removed. This can be done yourself or by the home nursing staff if applicable. The entire unit is disposable once removed. Once removed, keep incision clean and dry. If redness or drainage is noted, please call your surgeon. . IF INCISION IS LEAKING THROUGH DRESSING, CALL THE OFFICE . FOLLOW UP VISIT: If appointment is not already scheduled: Please call [facility] to make a follow-up appointment for 2 weeks after your surgery at . Stand-Alone Forms: My [facility] [employer], Smoking Cessation Medications and DC Order Prescriptions: New acetaminophen [Tylenol Extra Strength] 500 mg Tablet 1,000 mg PO Q8 Qty: 60 0RF aspirin 81 mg Tablet,Delayed Release (Dr/Ec) 81 mg PO BID Qty: 60 0RF celecoxib [Celebrex] 200 mg Capsule 200 mg PO BID Qty: 60 0RF oxycodone 5 mg Tablet 5 - 10 mg PO .Q4h-6h MDD 6 PRN (Reason: pain) Qty: 30 0RF Rx Instructions: Ongoing therapy, Dr. Walter supervising cefadroxil 500 mg capsule 500 mg PO BID Qty: 14 0RF Continued hydrocortisone 2.5 % cream 1 applic topical BID PRN (Reason: hemorrhoidal irritation) Qty: 30 5RF finasteride 5 mg tablet 5 mg PO DAILY Qty: 90 3RF Rx Instructions: pt does not need immediately. multivitamin [Multiple Vitamins] tablet 1 tab PO DAILY Qty: 90 3RF sildenafil 100 mg tablet 100 mg PO DAILY PRN (Reason: sexual activity) Qty: 30 11RF Rx Instructions: administer 30-60 minutes before activity Discontinued meloxicam 15 mg tablet 15 mg PO DAILY PRN (Reason: pain) Qty: 90 3RF Rx Instructions: pt does not need immediately. acetaminophen 325 mg Tablet 325 mg PO QID PRN (Reason: Pain) Discharge Orders: Discharge Order (Routine); Ordered 11/08/22 Ordered By: Jerome Brady/Other Patient Handouts: RICE, Total Knee Replacement Admission Data Admit Date/Time: 11/07/22 10:28 Attending Provider: Rosales Walter Admit Provider: Rosales Walter Primary Care Provider: Emre Landeros Other Providers: Jesse Mooney Other Interventions: Discharge Summary Assessment (RN) Last Done: 11/08/22 10:40
== END 2022-11-08 11:44 | disposition home or self-care (01) ==
LOC: 3W 04:59 → ASU 04:59